=== PATIENT | female | born 1955 | race Caucasian/White ===

== ENCOUNTER 2018-01-11 11:37 | Emergency (ER) | payer BC ==
[2018-01-11] MEDS ORDERED: HYDROmorphone 2 MG/ML Syringe SUBCUT ONE (12:00)
[2018-01-11] MEDS ORDERED: HYDROmorphone 4 MG/ML Syringe ONE (12:06)
--- NOTE | 2018-01-11 19:07 | CT ---
DATE OF SERVICE: 01/11/18 CLINICAL DATA: Fell Sat. Posterior chest wall pain - right side. UNENHANCED CHEST CT: Multislice acquisition through the chest without IV contrast was performed. There are linear densities in the lingular segment of the left upper lobe and left lung base consistent with linear atelectasis or fibrosis. The lungs are otherwise clear. No areas of consolidation. No pneumothorax. No pleural effusion. The heart is normal. No adenopathy. No evidence of mediastinal hematoma. There is a small hiatal hernia. No displaced fractures. IMPRESSION: No acute abnormalities. [id number] [facility]
--- NOTE | 2018-01-11 20:12 | ER ---
DATE OF SERVICE: 01/11/2018 HPI: A 62-year-old lady here with complaints of injuring her back last Tuesday evening. They were sitting around the campfire having some drinks when she was in the process of changing positions and she lost her balance. She fell against the cooler. She is pointing to the mid back area on the right side. She states that she has not noticed any bruising, but the pain is not well controlled with Tylenol or ibuprofen. She has been taking these medications regularly. She denies any problems with shortness of breath or any change with bowel or bladder habits. She has not been nauseated. OBJECTIVE: GENERAL APPEARANCE: The patient is awake and alert. She is standing in the holding her midback area with her right hand in a guarded position. VITAL SIGNS : Reviewed. Blood pressure 169/96, pulse of 73. Physical exam, examining the patient's back reveals area of tenderness involving the lower chest wall on the right side. Skin is intact without swelling or discoloration. There is guarding and significant pain with even light touch of this area. ABDOMEN: Soft without any tenderness with palpation. Bowel sounds are present. SKIN: Warm and dry. LUNGS: Clear. The patient is able to take a fairly deep breath without guarding. INITIAL TREATMENT: Dilaudid 2 mg was given subcutaneous daily after which a CT of the chest was obtained which is normal. At this point, the patient's pain is down to a 2 or 3 over 10. She states she feels much better, a little lightheaded. DIAGNOSIS: Contusion injury to the chest wall. TREATMENT PLAN: I will give the patient [place] tablets 5/325. She is to take one tablet every 4 to 6 hours as needed. I advised her to continue taking ibuprofen 800 mg 3 times a day. Wean down on the medication as her symptoms improve. Activity should be minimal for the next 2 to 3 days and then slowly improve as tolerated. I advised the patient to try heating pad since she did try ice the first day or so and follow up is p.r.n. LINDSAY/JARETH /[id number] [facility]ino
== END 2018-01-11 13:50 | disposition home or self-care (01) ==
LOC: LB.ED 11:37
DX: S20.211A Contusion of right front wall of thorax, initial encounter (principal); W19.XXXA Unspecified fall, initial encounter; W18.00XA Striking against unspecified object with subsequent fall, initial encounter
CPT/HCPCS: 71250; 96372; 99283; J1170